=== PATIENT | female | born 1990 | race Caucasian/White ===

== ENCOUNTER 2024-05-14 00:07 | Emergency (ER) | payer BC, MEDICARE ==
[~2024-05-14] VITALS: Ht 157.5 cm; Wt 65.9 kg
[2024-05-14 00:47] VITALS: BP 113/62; PULSE 106; RESP 16; TEMP 98.5; O2SAT 98
[2024-05-14] MEDS: TraMADol HCL 50 MG TABLET PO ONE (01:21)
[2024-05-14] MEDS: PERTUSS(ACELL),DIPH,TET/PF 0.5 ML SYRINGE [ADULT] IM. ONE (01:22)
[2024-05-14] MEDS: LIDOCAINE 1% 10 ML VIAL SQ ONE (01:22)
[2024-05-14] MEDS ORDERED: CIPR500T10 PO (02:30)
== END 2024-05-14 02:53 | disposition home or self-care (01) ==
LOC: EMS 00:18
DX: S31.811A Laceration without foreign body of right buttock, initial encounter (principal); F10.20 Alcohol dependence, uncomplicated; W25.XXXA Contact with sharp glass, initial encounter; Y93.89 Activity, other specified; Y92.89 Other specified places as the place of occurrence of the external cause; Y99.8 Other external cause status
CPT/HCPCS: 99283; 90715; 90471; 12002; J3490